=== PATIENT | female | born 1975 | race Caucasian/White ===

== ENCOUNTER 2017-03-22 21:14 | Emergency (ER) | payer BC ==
[2017-03-22 22:43] VITALS: BP 112/64
--- NOTE | 2017-03-22 23:04 | ED ---
Lower Extremity - HPI Summary HPI Summary: Pt here w/ Lt ankle injury earlier today. Was hustling down stairs when she landed on it funny and felt a pop - kept going and when she landed at the bottom of the stairs felt another pop w/ a sharp pain. Decided to walk it off which she continued to do throughout the day when she noticed pain/discomfort. While sitting to eat dinner tonight, pain was more noticeable and when she looked she saw swelling. Attempted to walk to the neighbor's house but was unable to so came here for evaluation. Lateral aspect is swollen and tender to touch as well as proximal lateral ankle. Denies numbness, tingling, weakness but whole ankle has spurts of sharp pain at times depending on position. ALso notes anterior, medial knee pain that's presented throughout the day w/ weight bearing. She admits to previous meniscal tear w/ repair here in the past and anytime she hurts her Left leg, this area of her knee is painful in same fashion - no change in pain quality, location or provocation with this injury today. Took aleve prior to arrival. - History of Current Complaint Chief Complaint: EDExtremityLower Stated Complaint: LT ANKLE INJURY Time Seen by Provider: 03/22/17 21:20 Hx Obtained From: Patient, Family/Dean Of Men - , children Pain Intensity: 0 Pain Scale Used: 0-10 Numeric - Allergies/Home Medications Allergies/Adverse Reactions: Allergies Allergy/AdvReac Type Severity Reaction Status Date / Time Sulfa Antibiotics AdvReac Intermediate Vomiting Verified 08/21/15 07:20 PMH/Surg Hx/FS Hx/Imm Hx Previously Healthy: Yes Endocrine/Hematology History: Denies: Hx Anticoagulant Therapy, Hx Blood Disorders GI History: Reports: Hx Gall Bladder Disease - cholecystectomy Musculoskeletal History: Reports: Other Musculoskeletal History - Lt knee meniscal tear repair Denies: Hx Osteoporosis Sensory History: Reports: Hx Contacts or Glasses Opthamlomology History: Reports: Hx Contacts or Glasses - Surgical History Surgery Procedure, Year, and Place: APPENDECTOMY, GALL BLADDER, TUBAL, D&C - Immunization History Immunizations Up to Date: Yes Infectious Disease History: No Infectious Disease History: Denies: Traveled Outside the [place] in Last 30 Days - Family History Known Family History: Positive: Diabetes, Other - Lung CA, Bladder CA. - Social History Occupation: Employed Full-time - nurse Lives: With Family Alcohol Use: Occasionally Hx Substance Use: No Substance Use Type: Reports: None Smoking Status (MU): Current Every Day Smoker Review of Systems Constitutional: Negative Positive: no symptoms reported Positive: Arthralgia, Decreased ROM, Edema Positive: Bruising - about area of injury Neurological: Negative Psychological: Normal All Other Systems Reviewed And Are Negative: Yes Physical Exam Triage Information Reviewed: Yes Vital Signs On Initial Exam: Initial Vitals Temp Pulse Resp BP Pulse Ox 98.3 F 97 16 127/67 100 03/22/17 21:17 03/22/17 21:17 03/22/17 21:17 03/22/17 21:17 03/22/17 21:17 Vital Signs Reviewed: Yes Appearance: Positive: Well-Appearing, No Pain Distress, Well-Nourished Skin: Positive: Warm, Dry - no erythema, possibly early signs of ecchymosis about Lt ankle - edema laterally over malleolus w/ TTP - tendon is TTP moving proximally along lateral aspect as well Head/Face: Positive: Normal Head/Face Inspection Eyes: Positive: Normal, EOMI ENT: Positive: Hearing grossly normal, Pharynx normal - mucosa moist Respiratory/Lung Sounds: Positive: Breath Sounds Present Cardiovascular: Positive: Pulses are Symmetrical in both Upper and Lower Extremities Musculoskeletal: Positive: Strength/ROM Intact - 5th MT and all MT's are NTTP - no gross deformity in foot, Pain @ - Lt ankle w/ lateral edema and lateral malleolus TTP; Lt medial/anterior knee is w/ mild TTP - no lesly deformity or crepitus w/ movement, Other - (-) Amaya test Neurological: Positive: Normal, Sensory/Motor Intact, Alert, Oriented to Person Place, Time, CN Intact II-III Psychiatric: Positive: Normal - [place] Coma Scale Coma Scale Total: 15 Diagnostics - Vital Signs Vital Signs Temp Pulse Resp BP Pulse Ox 03/22/17 22:50 98.1 F 80 16 112/64 100 03/22/17 22:30 97 112/64 99 03/22/17 22:00 104 116/74 100 03/22/17 21:30 103 126/70 100 03/22/17 21:24 106 100 03/22/17 21:22 127/67 03/22/17 21:17 98.3 F 97 16 127/67 100 - Laboratory Diagnostic Studies Comment: Left ankle XR: (wet read) - even joint spaces; no fx , no dislocation. Confirmed w/ Dr. Basilio Lab Statement: Any lab studies that have been ordered have been reviewed, and results considered in the medical decision making process. Lower Extremity Course/Dx - Course Course Of Treatment: Explained pt may have 1st or 2nd degree ankle sprain - does not appear to have 3rd degree. Non-weight bearing and support with CAM boot , crutches and f/u w/ PCP in1 week. If worse or not improving, needs ortho referral. Pt agrees w/ plan - has been seen by Rogerio in the past and would contact his office if needed. Also reviewed danger s/sx of when to return to ED. Pt does not want anything more for pain at this time and agrees w/ plan. - Diagnoses Provider Diagnoses: Moderate left ankle sprain Discharge - Discharge Plan Condition: Stable Disposition: HOME Patient Education Materials: Ankle Sprain (ED), Crutch Instructions (ED), Splint Care (ED) Forms: *Work Release Referrals: Matthew Vera MD [Primary Care Provider] - Additional Instructions: Rest, ice, elevate, compression - wear Cam boot most of the time - may remove to shower and gently stretch ankle/toes/knee throughout the day. Use ibuprofen 600mg every 6hours with food OR aleve 500mg every 12 hours for pain. You may alternate with acetaminophen 650mg every 6 hours if breakthrough pain presents. You may also try topical rubs such as arnica, biofreeze, etc Do not bear weight - use crutches to accomplish this task. After 48 hours, you may gently attempt weight bearing with toe touch while using crutches. If tolerable, may gently advance as tolerated but do not bear full weight until seen by PCP or orthopedics for follow-up in 1 week. If pain/swelling are still present, remain non-weight bearing and follow-up with orthopedics. *If you develop numbness, weakness, skin discoloration, coolness of foot, return to ED
--- NOTE | 2017-03-23 07:41 | RAD ---
HISTORY: Left ankle sprain, lateral edema with pain COMPARISONS: None VIEWS: 3, Frontal, lateral, and oblique views of the left ankle FINDINGS: BONE DENSITY: Normal. BONES: There is no displaced fracture. JOINTS: There is no arthropathy. ALIGNMENT: There is no dislocation. SOFT TISSUES: Unremarkable. OTHER FINDINGS: None. IMPRESSION: NO ACUTE OSSEOUS INJURY. IF SYMPTOMS PERSIST, RECOMMEND REPEAT IMAGING.
== END 2017-03-22 22:50 | disposition home or self-care (01) ==
LOC: ED 21:14
DX: S93.402A Sprain of unspecified ligament of left ankle, initial encounter (principal); F17.200 Nicotine dependence, unspecified, uncomplicated; Z88.2 Allergy status to sulfonamides; W10.9XXA Fall (on) (from) unspecified stairs and steps, initial encounter; Y92.9 Unspecified place or not applicable
CPT/HCPCS: 99282

== ENCOUNTER 2018-01-20 09:02 | Emergency (ER) | payer BC, OTHER ==
--- NOTE | 2018-01-20 10:06 | RAD ---
HISTORY: injured at work COMPARISONS: None VIEWS: 5 , Frontal, lateral, coned-down lateral sacral, and bilateral oblique views of the lumbar spine. FINDINGS: ALIGNMENT: The alignment is normal. VERTEBRAL BODIES: The vertebral body heights are normal. The interpedicular distances are normal. JOINTS: The facet joints are normal. INTERVERTEBRAL DISCS: The intervertebral disc heights are normal. SOFT TISSUE: Unremarkable. OTHER: The pelvis is unremarkable. The lung bases are clear. IMPRESSION: UNREMARKABLE RADIOGRAPHS OF THE LUMBAR SPINE
--- NOTE | 2018-01-20 10:06 | RAD ---
HISTORY: injured at work COMPARISONS: None VIEWS: 2, Frontal and lateral views of the thoracic spine. FINDINGS: ALIGNMENT: The alignment is normal. VERTEBRAL BODIES: The vertebral body heights are normal. The interpedicular distances are normal. JOINTS: Unremarkable. INTERVERTEBRAL DISCS: The intervertebral disc heights are normal. SOFT TISSUE: Unremarkable OTHER: The visualized lungs are clear. IMPRESSION: UNREMARKABLE RADIOGRAPHS OF THE THORACIC SPINE
--- NOTE | 2018-01-20 10:08 | RAD ---
HISTORY: injured at work COMPARISONS: February 06, 2009 VIEWS: 4 , Frontal, lateral, axial, and oblique views of the left knee FINDINGS: BONE DENSITY: Normal. BONES: There is no displaced fracture. JOINTS: There is no arthropathy. There is no suprapatellar joint effusion or lipohemarthrosis. ALIGNMENT: There is no dislocation. SOFT TISSUES: Unremarkable. OTHER FINDINGS: None. IMPRESSION: NO ACUTE OSSEOUS INJURY. IF SYMPTOMS PERSIST, RECOMMEND REPEAT IMAGING.
--- NOTE | 2018-01-20 10:28 | ED ---
Back Pain - HPI Summary HPI Summary: Patient is a 42yo F presenting to the ED with thoracic and lumbar spine pain as well as left knee pain. 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 She states she endorsed immediate pain to the thoracic and lumbar spine as well as the left knee. She was able to complete her shift as well as the following shift the next day, however continued to endorse tenderness to the area. Symptoms improved with heat and ibuprofen as well as flexing forward throughout the spine. She has a previous meniscal tear to the left knee and states she may have aggravated it. Pain is a 4/10. Denies any other pain or concerns on this visit. - History of Current Complaint Chief Complaint: EDBackInjuryPain Stated Complaint: LEFT LEG AND BACK PAIN Time Seen by Provider: 01/20/18 09:12 Hx Obtained From: Patient Onset/Duration: Sudden Onset Onset/Duration: Started Hours Ago Timing: Constant Back Pain Location: Is Discrete @ - thoracic spine and L knee pain Severity Initially: Moderate Severity Currently: Moderate Pain Intensity: 2 Pain Scale Used: 0-10 Numeric Character: Aching Aggravating Symptom(s): Lifting, Bending Alleviating Symptom(s): Rest, Position Associated Signs And Symptoms: Positive: Numbness - intermittent to the dorsum of the foot. Negative: Swelling, Redness, Bruising, Bladder Incontinence, Bowel Incontinence, Weight Loss, Pain with Weight Bearing - Risk Factors AAA Risk Factors: Negative TAD Risk Factors: Negative Cauda Equina Risk Factors: Negative Epidural Abscess Risk Factors: Negative - Allergies/Home Medications Allergies/Adverse Reactions: Allergies Allergy/AdvReac Type Severity Reaction Status Date / Time Sulfa (Sulfonamide Allergy Vomiting Verified 01/20/18 09:08 Antibiotics) PMH/Surg Hx/FS Hx/Imm Hx Previously Healthy: Yes Endocrine/Hematology History: Denies: Hx Anticoagulant Therapy, Hx Blood Disorders GI History: Reports: Hx Gall Bladder Disease - cholecystectomy Musculoskeletal History: Reports: Other Musculoskeletal History - Lt knee meniscal tear repair Denies: Hx Osteoporosis Sensory History: Reports: Hx Contacts or Glasses Opthamlomology History: Reports: Hx Contacts or Glasses - Cancer History Hx Chemotherapy: No Hx Radiation Therapy: No - Surgical History Surgery Procedure, Year, and Place: APPENDECTOMY, GALL BLADDER, TUBAL, D&C - Immunization History Hx Pertussis Vaccination: No Immunizations Up to Date: Yes Infectious Disease History: No Infectious Disease History: Denies: Traveled Outside the [place] in Last 30 Days - Family History Known Family History: Positive: Diabetes, Other - Lung CA, Bladder CA. - Social History Occupation: Employed Full-time Lives: With Family Alcohol Use: Occasionally Hx Substance Use: No Substance Use Type: Reports: None Smoking Status (MU): Current Every Day Smoker Review of Systems Constitutional: Negative Negative: Fever, Chills, Fatigue, Skin Diaphoresis Negative: Palpitations, Chest Pain Negative: Shortness Of Breath, Cough Genitourinary: Negative Positive: no symptoms reported, see HPI Positive: Arthralgia - thoracic and lumbar spine pain and L knee pain Skin: Negative All Other Systems Reviewed And Are Negative: Yes Physical Exam Triage Information Reviewed: Yes Vital Signs On Initial Exam: Initial Vitals Temp Pulse Resp BP Pulse Ox 98.1 F 88 14 135/91 100 01/20/18 09:08 01/20/18 09:08 01/20/18 09:08 01/20/18 09:08 01/20/18 09:08 Vital Signs Reviewed: Yes Appearance: Positive: Well-Appearing Skin: Positive: Skin Color Reflects Adequate Perfusion Head/Face: Positive: Normal Head/Face Inspection Eyes: Positive: Conjunctiva Clear Neck: Positive: Supple Respiratory/Lung Sounds: Positive: Breath Sounds Present Cardiovascular: Positive: Normal Musculoskeletal: Positive: Pain @ - medial left knee - thoracic spine at T8-11 - no step off noted Neurological: Positive: Sensory/Motor Intact, Alert, Oriented to Person Place, Time, Speech Normal Psychiatric: Positive: Affect/Mood Appropriate AVPU Assessment: Alert Diagnostics - Vital Signs Vital Signs Temp Pulse Resp BP Pulse Ox 01/20/18 09:08 98.1 F 88 14 135/91 100 - Laboratory Lab Statement: Any lab studies that have been ordered have been reviewed, and results considered in the medical decision making process. Back Pain Course/Dx - Course Course Of Treatment: Patient is evaluated for mid and low back pain as well as left knee pain. This is her first time being seen for these injuries as they occurred 3 days ago while working. Lumbar and thoracic spine x-rays obtained and are unremarkable. Left knee x-ray obtained and is also unremarkable. She will be referred to orthopedics and is given a note for work. - Diagnoses Differential Diagnosis/HQI/PQRI: Positive: Herniated Disc, Strain, Sprain Provider Diagnoses: Strain of thoracic spine, Knee strain Discharge - Sign-Out/Discharge Documenting (check all that apply): Patient Departure - Discharge Plan Condition: Stable Disposition: HOME Patient Education Materials: Thoracic Back Strain (ED) Forms: *Work Release Referrals: Matthew Vera MD [Primary Care Provider] - John Albert MD [Medical Doctor] - Additional Instructions: Please follow up with orthopedics for your back and knee pain for further evaluation Off work x 1 week or until follow up - Billing Disposition and Condition Condition: STABLE Disposition: Home
[2018-01-20 10:33] VITALS: BP 109/64
== END 2018-01-20 10:30 | disposition home or self-care (01) ==
LOC: ED 09:02
DX: S29.012A Strain of muscle and tendon of back wall of thorax, initial encounter (principal); S86.912A Strain of unspecified muscle(s) and tendon(s) at lower leg level, left leg, initial encounter; X50.0XXA Overexertion from strenuous movement or load, initial encounter; Y93.F2 Activity, caregiving, lifting; Y92.239 Unspecified place in hospital as the place of occurrence of the external cause; Y99.0 Civilian activity done for income or pay; Z88.2 Allergy status to sulfonamides; F17.200 Nicotine dependence, unspecified, uncomplicated
CPT/HCPCS: 72070; 72110; 99282

== ENCOUNTER 2018-08-24 22:47 | Emergency (ER) | payer BC, OTHER ==
[2018-08-24 23:47] LABS: Urine Appearance Cloudy; Urine Bacteria 2+ (Absent); Urine Bilirubin Negative (Negative); Urine Blood 2+ (Negative); Urine Color Straw; Urine Glucose Negative (Negative); Urine Ketones Negative (Negative); Urine Nitrite Negative (Negative); Urine Protein Negative (Negative); Urine Red Blood Cell 1+(3-5/hpf) (Absent); Urine Specific Gravity 1.004 (1.010-1.030); Urine Squamous Epithelial Cell Present (Absent); Urine Urobilinogen Negative (Negative); Urine White Blood Cell Trace(0-5/hpf) (Absent)
[2018-08-25 00:09] LABS: ABS Eosinophils 0.1 10^3/ul (0-0.6); ABS Monocytes 0.5 10^3/ul (0-0.8); Eosinophil % 0.9 %; Hematocrit 38 % (35-47); Hemoglobin 12.6 g/dL (12.0-16.0); Lymphocyte % 15.2 %; Mean Corpuscular HGB Conc 33 g/dL (31-36); Mean Corpuscular Hemoglobin 29 pg (27-31); Mean Corpuscular Volume 88 fL (80-97); Mean Platelet Volume 7.7 fL (7.4-10.4); Platelet Count 237 10^3/uL (150-450); Red Blood Count 4.31 10^6 /uL (3.70-4.87); Red Cell Distribution Width 14 % (10.5-15); White Blood Count 6.5 10^3/uL (3.5-10.8)
[2018-08-25 00:27] LABS: ALT 15 U/L (7-52); AST 15 U/L (13-39); Albumin 3.9 g/dL (3.2-5.2); Albumin/Globulin Ratio 1.3 (1-3); Alkaline Phosphatase 65 U/L (34-104); Anion Gap 8 mmol/L (2-11); BUN/Creatinine Ratio 17.3 (8-20); Blood Urea Nitrogen 14 mg/dL (6-24); CO2 Carbon Dioxide 22 mmol/L (22-32); Calcium 8.8 mg/dL (8.6-10.3); Chloride 108 mmol/L (101-111); EGFR African American 94.3 (>60); EGFR Non-African American 77.9 (>60); Glucose 81 mg/dL (70-100); Potassium 3.6 mmol/L (3.5-5.0); Sodium 138 mmol/L (135-145); Total Protein 6.9 g/dL (6.4-8.9)
[2018-08-25 00:33] LABS: HCG Pregnancy < 0.60 mIU/mL
[2018-08-25] MEDS ORDERED: Amoxicillin/Clavulanate TAB* 875 MG PO ONE (01:12)
--- NOTE | 2018-08-25 01:15 | ED ---
Shortness of Breath - HPI Summary HPI Summary: Patient complains of fever, dry cough, progressive exertional shortness of breath x 5days, and left-sided chest pain tonight when lying down. High fever of 102, no longer being controlled with Tylenol or ibuprofen. Denies SANDOVAL, sore throat, V/D, abdominal pain, change in urine, change in BM. Medical history is myocarditis 1. Denies prior cardiac history. Former smoker quit 2018. - History of Current Complaint Chief Complaint: EDShortnessOfBreath Time Seen by Provider: 08/24/18 23:22 Hx Obtained From: Patient Onset/Duration: Gradual Onset, Lasting Days Timing: Constant Current Severity: Moderate Aggrevating Factors: Movement Alleviating Factors: Nothing Associated Signs & Symptoms: Cough (Nonproductive), Fever - Allergy/Home Medications Allergies/Adverse Reactions: Allergies Allergy/AdvReac Type Severity Reaction Status Date / Time shellfish derived Allergy Vomiting Verified 08/24/18 22:55 Sulfa (Sulfonamide Allergy Vomiting Verified 08/24/18 22:55 Antibiotics) PMH/Surg Hx/FS Hx/Imm Hx Endocrine/Hematology History: Denies: Hx Anticoagulant Therapy, Hx Blood Disorders, Hx Diabetes Cardiovascular History: Denies: Hx Hypertension, Hx Pacemaker/ICD GI History: Reports: Hx Gall Bladder Disease - cholecystectomy Musculoskeletal History: Reports: Other Musculoskeletal History - Lt knee meniscal tear repair Denies: Hx Osteoporosis Sensory History: Reports: Hx Contacts or Glasses Denies: Hx Hearing Aid Opthamlomology History: Reports: Hx Contacts or Glasses Neurological History: Denies: Hx Dementia Psychiatric History: Denies: Hx Panic Disorder - Cancer History Hx Chemotherapy: No Hx Radiation Therapy: No - Surgical History Surgery Procedure, Year, and Place: APPENDECTOMY, GALL BLADDER, TUBAL, D&C, LEFT KNEE ARTHROSCOPY Infectious Disease History: No Infectious Disease History: Denies: Traveled Outside the [place] in Last 30 Days - Family History Known Family History: Positive: Diabetes, Other - Lung CA, Bladder CA. - Social History Alcohol Use: Occasionally Hx Substance Use: No Substance Use Type: Reports: None Smoking Status (MU): Never Smoked Tobacco Review of Systems Positive: Fever Eyes: Negative ENT: Negative Positive: Chest Pain Positive: Shortness Of Breath, Cough Gastrointestinal: Negative Genitourinary: Negative Musculoskeletal: Negative Skin: Negative Neurological: Negative Psychological: Normal All Other Systems Reviewed And Are Negative: Yes Physical Exam Triage Information Reviewed: Yes Vital Signs On Initial Exam: Initial Vitals Temp Pulse Resp BP Pulse Ox 99 F 97 20 122/103 98 08/24/18 22:53 08/24/18 22:53 08/24/18 22:53 08/24/18 22:53 08/24/18 22:53 Vital Signs Reviewed: Yes Appearance: Positive: Well-Appearing Skin: Positive: Warm Head/Face: Positive: Normal Head/Face Inspection Eyes: Positive: Normal ENT: Positive: Normal ENT inspection Neck: Positive: Supple Respiratory/Lung Sounds: Positive: Clear to Auscultation Cardiovascular: Positive: Normal Abdomen Description: Positive: Nontender Musculoskeletal: Positive: Normal Neurological: Positive: Normal Psychiatric: Positive: Normal AVPU Assessment: Alert - [place] Coma Scale Best Eye Response: 4 - Spontaneous Best Motor Response: 6 - Obeys Commands Best Verbal Response: 5 - Oriented Coma Scale Total: 15 Diagnostics - Vital Signs Vital Signs Temp Pulse Resp BP Pulse Ox 08/24/18 23:03 101 98 08/24/18 23:01 88 107/65 99 08/24/18 22:53 99 F 97 20 122/103 98 - Laboratory Lab Results: Lab Results 08/24/18 08/25/18 08/25/18 Range/Units 23:35 00:00 00:00 WBC 6.5 (3.5-10.8) 10^3/uL RBC 4.31 (3.70-4.87) 10^6 /uL Hgb 12.6 (12.0-16.0) g/dL Hct 38 (35-47) % MCV 88 (80-97) fL MCH 29 (27-31) pg MCHC 33 (31-36) g/dL RDW 14 (10.5-15) % Plt Count 237 (150-450) 10^3/uL MPV 7.7 (7.4-10.4) fL Neut % (Auto) 76.6 % Lymph % (Auto) 15.2 % [place] % (Auto) 6.9 % Eos % (Auto) 0.9 % Baso % (Auto) 0.4 % Absolute Neuts (auto) 5.0 (1.5-7.7) 10^3/ul Absolute Lymphs (auto) 1.0 (1.0-4.8) 10^3/ul Absolute Monos (auto) 0.5 (0-0.8) 10^3/ul Absolute Eos (auto) 0.1 (0-0.6) 10^3/ul Absolute Basos (auto) 0.0 (0-0.2) 10^3/ul Absolute Nucleated RBC 0.0 10^3/ul Nucleated RBC % 0.0 Sodium 138 (135-145) mmol/L Potassium 3.6 (3.5-5.0) mmol/L Chloride 108 (101-111) mmol/L Carbon Dioxide 22 (22-32) mmol/L Anion Gap 8 (2-11) mmol/L BUN 14 (6-24) mg/dL Creatinine 0.81 (0.51-0.95) mg/dL Est GFR ( Amer) 94.3 (>60) Est GFR (Non-Af Amer) 77.9 (>60) BUN/Creatinine Ratio 17.3 (8-20) Glucose 81 (70-100) mg/dL Lactic Acid (0.5-2.0) mmol/L Calcium 8.8 (8.6-10.3) mg/dL Total Bilirubin 0.30 (0.2-1.0) mg/dL AST 15 (13-39) U/L ALT 15 (7-52) U/L Alkaline Phosphatase 65 (34-104) U/L C-Reactive Protein 92.40 H (<8.01) mg/L Total Protein 6.9 (6.4-8.9) g/dL Albumin 3.9 (3.2-5.2) g/dL Globulin 3.0 (2-4) g/dL Albumin/Globulin Ratio 1.3 (1-3) Beta HCG, Quant < 0.60 mIU/mL Urine Color Straw Urine Appearance Cloudy Urine pH 6.0 (5-9) Ur Specific [place] 1.004 L (1.010-1.030) Urine Protein Negative (Negative) Urine Ketones Negative (Negative) Urine Blood 2+ A (Negative) Urine Nitrate Negative (Negative) Urine Bilirubin Negative (Negative) Urine Urobilinogen Negative (Negative) Ur Leukocyte Esterase Negative (Negative) Urine WBC (Auto) Trace(0-5/hpf) (Absent) Urine RBC (Auto) 1+(3-5/hpf) A (Absent) Ur Squamous Epith Cells Present A (Absent) Urine Bacteria 2+ A (Absent) Urine Glucose Negative (Negative) 08/25/18 Range/Units 00:00 WBC (3.5-10.8) 10^3/uL RBC (3.70-4.87) 10^6 /uL Hgb (12.0-16.0) g/dL Hct (35-47) % MCV (80-97) fL MCH (27-31) pg MCHC (31-36) g/dL RDW (10.5-15) % Plt Count (150-450) 10^3/uL MPV (7.4-10.4) fL Neut % (Auto) % Lymph % (Auto) % [place] % (Auto) % Eos % (Auto) % Baso % (Auto) % Absolute Neuts (auto) (1.5-7.7) 10^3/ul Absolute Lymphs (auto) (1.0-4.8) 10^3/ul Absolute Monos (auto) (0-0.8) 10^3/ul Absolute Eos (auto) (0-0.6) 10^3/ul Absolute Basos (auto) (0-0.2) 10^3/ul Absolute Nucleated RBC 10^3/ul Nucleated RBC % Sodium (135-145) mmol/L Potassium (3.5-5.0) mmol/L Chloride (101-111) mmol/L Carbon Dioxide (22-32) mmol/L Anion Gap (2-11) mmol/L BUN (6-24) mg/dL Creatinine (0.51-0.95) mg/dL Est GFR ( Amer) (>60) Est GFR (Non-Af Amer) (>60) BUN/Creatinine Ratio (8-20) Glucose (70-100) mg/dL Lactic Acid 0.5 (0.5-2.0) mmol/L Calcium (8.6-10.3) mg/dL Total Bilirubin (0.2-1.0) mg/dL AST (13-39) U/L ALT (7-52) U/L Alkaline Phosphatase (34-104) U/L C-Reactive Protein (<8.01) mg/L Total Protein (6.4-8.9) g/dL Albumin (3.2-5.2) g/dL Globulin (2-4) g/dL Albumin/Globulin Ratio (1-3) Beta HCG, Quant mIU/mL Urine Color Urine Appearance Urine pH (5-9) Ur Specific [place] (1.010-1.030) Urine Protein (Negative) Urine Ketones (Negative) Urine Blood (Negative) Urine Nitrate (Negative) Urine Bilirubin (Negative) Urine Urobilinogen (Negative) Ur Leukocyte Esterase (Negative) Urine WBC (Auto) (Absent) Urine RBC (Auto) (Absent) Ur Squamous Epith Cells (Absent) Urine Bacteria (Absent) Urine Glucose (Negative) Result Diagrams: 08/25/18 00:00 08/25/18 00:00 Lab Statement: Any lab studies that have been ordered have been reviewed, and results considered in the medical decision making process. Course/Dx - Course Course Of Treatment: Patient complains of fever, dry cough, progressive exertional shortness of breath x 5days, and left-sided chest pain tonight when lying down. High fever of 102, no longer being controlled with Tylenol or ibuprofen. Denies SANDOVAL, sore throat, V/D, abdominal pain, change in urine, change in BM. Medical history is myocarditis 1. Denies prior cardiac history. Former smoker quit 2017. Physical exam unremarkable. Vital signs unremarkable. CRP 92. Labs otherwise unremarkable. UA positive for UTI. Patient states history of chronic UTI followed by Dr. Panchal. Chest x-ray positive for pneumonia. Patient started on Augmentin here. Rx for same. - Diagnoses Provider Diagnoses: Pneumonia Discharge - Sign-Out/Discharge Documenting (check all that apply): Patient Departure Patient Received Moderate/Deep Sedation with Procedure: No - Discharge Plan Condition: Fair Disposition: HOME Prescriptions: Amoxicillin/Clavulanate TAB* [Augmentin TAB 875*] 875 mg PO BID #20 tab Patient Education Materials: Bacterial Pneumonia (ED) Forms: *Work Release Referrals: Matthew Vera MD [Primary Care Provider] - Additional Instructions: Take antibiotics as directed. Return to the ED for any new or worsening symptoms. - Billing Disposition and Condition Condition: FAIR Disposition: Home
[2018-08-25 01:43] VITALS: BP 93/57
== END 2018-08-25 01:30 | disposition home or self-care (01) ==
LOC: ED 22:47
DX: J18.9 Pneumonia, unspecified organism (principal); R06.02 Shortness of breath; R07.89 Other chest pain; R05 Cough; R50.9 Fever, unspecified; Z88.2 Allergy status to sulfonamides; Z90.49 Acquired absence of other specified parts of digestive tract
CPT/HCPCS: 36415; 71046; 80053; 81003; 81015; 83605; 84702; 85025; 86140; 87040; 87077; 87086; 87186; 99283; A9270-GY